=== PATIENT | female | born 1990 | race Caucasian/White ===

== ENCOUNTER 2022-05-17 07:23 | Emergency (ER) | payer OTHER | END 2022-05-17 09:16 | disposition home or self-care (01) | LOC: CSHERS 07:23 | DX: J02.9 Acute pharyngitis, unspecified (principal); Z20.822 Contact with and (suspected) exposure to COVID-19 | CPT/HCPCS: 71045; U0003; U0005 ==

== ENCOUNTER 2022-06-19 07:48 | Emergency (ER) | payer OTHER | END 2022-06-19 08:52 | disposition home or self-care (01) | LOC: CSHERS 07:48 | DX: J11.1 Influenza due to unidentified influenza virus with other respiratory manifestations (principal) | CPT/HCPCS: 87804; 99283 ==

== ENCOUNTER 2022-10-03 15:01 | Emergency (ER) | payer OTHER | END 2022-10-03 16:00 | disposition home or self-care (01) | LOC: CSHERS 15:01 | DX: O99.891 Other specified diseases and conditions complicating pregnancy (principal); R10.30 Lower abdominal pain, unspecified; Z3A.15 15 weeks gestation of pregnancy ==

== ENCOUNTER 2022-10-31 14:22 | Outpatient (CLI) | payer OTHER | END 2022-10-31 14:23 | disposition home or self-care (01) | LOC: CSHULT 14:22 | PROVIDERS: ATTEND Family Medicine | DX: Z34.82 Encounter for supervision of other normal pregnancy, second trimester (principal) | CPT/HCPCS: 76805 ==

== ENCOUNTER 2023-03-07 21:22 | Inpatient (IN) | payer OTHER ==
[~2023-03-07 21:22] MED LIST: Bupivacaine PF 0.5% 30 ML VIAL ONE
[2023-03-07 22:07] VITALS: BMI 27.1
[2023-03-07] MEDS ORDERED: Metoclopramide HCl 10 MG/2 ML VIAL IVP PRN (22:28)
[2023-03-07] MEDS ORDERED: diphenhydrAMINE 50 MG/ML VIAL IVP PRN (22:28)
[2023-03-07] MEDS ORDERED: hydrALAZINE 20 MG/ML VIAL SLOW IVP PRN (22:28)
[2023-03-07] MEDS ORDERED: Acetaminophen 325 MG TAB PO PRN (22:29)
[2023-03-08] MEDS ORDERED: fentaNYL 50 mcg/mL 1 mL Vial SLOW IVP PRN (00:30)
[2023-03-08] MEDS ORDERED: NS w/ Oxytocin 30 units 500 ML IV SCH (03:15)
[2023-03-08] MEDS ORDERED: NS w/ Oxytocin 30 units 500 ML IVPB SCH (03:15)
[2023-03-08] MEDS ORDERED: Ibuprofen 800 MG TAB PO PRN (03:15)
[2023-03-08] MEDS ORDERED: Misoprostol 200 MCG TAB RC PRN (03:15)
[2023-03-08] MEDS ORDERED: Carboprost 250 MCG/ML AMP IM PRN (03:15)
[2023-03-08] MEDS ORDERED: HYDROcodone/Acetaminophen 5/325 mg Tablet PO PRN ×3 (03:15→13:40)
[2023-03-08] MEDS ORDERED: Lidocaine 1% (PF) 30 ML VIAL SC PRN (03:15)
[2023-03-08] MEDS ORDERED: Methylergonovine 0.2 MG/ML VIAL IM PRN (03:15)
[2023-03-08] MEDS ORDERED: Diphenoxylate HCl/Atropine Tablet PO PRN (03:15)
[2023-03-08] MEDS ORDERED: fentaNYL 50 mcg/mL 1 mL Vial ONE (03:19)
[2023-03-08] MEDS ORDERED: Ondansetron PF 4 MG/2 ML Vial IVP PRN ×3 (03:30→13:40)
[2023-03-08] MEDS ORDERED: Acetaminophen 500 MG TAB PO PRN (03:30)
[2023-03-08] MEDS ORDERED: Promethazine HCl 25 MG/ML VIAL IM PRN ×3 (03:30→13:40)
[2023-03-08] MEDS ORDERED: hydrALAZINE 20 MG/ML VIAL SLOW IVP PRN ×2 (03:30→13:40)
[2023-03-08] MEDS ORDERED: Zolpidem Tartrate 5 MG TAB PO PRN (03:30)
[2023-03-08] MEDS ORDERED: Lactated Ringer's 1,000 ML IV SCH (03:30)
[2023-03-08] MEDS: fentaNYL 50 mcg/mL 1 mL Vial SLOW IVP PRN ×2 (03:31→05:50)
[2023-03-08 05:14] LABS: HBSAg Index 0.65 S/CO (0-0.99); Hep B Surf Ag - L&D Non-Reactive S/CO (NonReactive); Syphilis Antibody Nonreactive (Nonreactive); Syphilis Antibody Index 0.02 S/CO (<1.00 Non-Reactive)
[2023-03-08 05:23] LABS: HIV (1/2) Antibody/Antigen Non-Reactive (NonReactive); HIV 1/2 INDEX 0.09 S/CO (<1.00)
[2023-03-08 05:24] LABS: Hemoglobin 10.3 g/dL (12.0-15.5); Mean Corpuscular HGB CONC 32.9 g/dL (32.0-36.0); Mean Corpuscular Volume 94.3 fl (81.6-98.3); Mean Platelet Volume 11.5 fl (7.4-10.4); Platelet Count 119 10x3/uL (150-450); Red Blood Cell (RBC) Count 3.32 10x6/uL (3.90-5.03); White Blood Cell (WBC) Count 11.9 10x3/uL (3.5-10.5)
[2023-03-08] MEDS ORDERED: fentaNYL/Ropivacaine Epidural 100 ML ONE (07:57)
[2023-03-08] MEDS ORDERED: ePHEDrine Sulfate 50 MG/10 ML VIAL SLOW IVP PRN (08:36)
[2023-03-08] MEDS ORDERED: Lactated Ringer's 500 ML IV PRN (08:36)
[2023-03-08] MEDS ORDERED: Naloxone HCl 0.4 mg/ml Vial IVP PRN ×2 (08:36)
[2023-03-08] MEDS ORDERED: Moisturizing Cream (Eucerin) 113 GM JAR TOP PRN (08:36)
[2023-03-08] MEDS ORDERED: Acetaminophen 325 MG TAB PO PRN (08:36)
[2023-03-08] MEDS ORDERED: diphenhydrAMINE 50 MG/ML VIAL IVP PRN (08:36)
[2023-03-08] MEDS ORDERED: fentaNYL 2 mcg/Ropivacaine 0.2% Epidural 100 ML CADD EPIDURAL SCH (08:45)
[2023-03-08] MEDS ORDERED: Communication Order-Pharmacy FS SCH (08:45)
[2023-03-08] MEDS ORDERED: Boostrix 0.5 ML (Tdap) VIAL (>/=7 yrs of age) IM ONE (13:40)
[2023-03-08] MEDS ORDERED: Bisacodyl 10 MG SUPP PR PRN (13:40)
[2023-03-08] MEDS ORDERED: Milk Of Magnesia 30 ML UDCUP PO PRN (13:40)
[2023-03-08] MEDS ORDERED: diphenhydrAMINE 25 MG CAP PO PRN (13:40)
[2023-03-08] MEDS ORDERED: Lanolin Ointment 7 GM TUBE TOP PRN (13:40)
[2023-03-08] MEDS: Ibuprofen 800 MG TAB PO SCH ×2 (19:37→21:36)
[2023-03-08] MEDS: Ferrous Sulfate 325 MG TAB PO SCH (19:37)
[2023-03-08] MEDS: Docusate 100 MG CAP PO SCH (21:36)
[2023-03-09] MEDS: Ibuprofen 800 MG TAB PO SCH (05:41)
[2023-03-09] MEDS: Ferrous Sulfate 325 MG TAB PO SCH (08:08)
[2023-03-09] MEDS: Docusate 100 MG CAP PO SCH (08:38)
[2023-03-09] MEDS ORDERED: Prenatal Vitamin 1 TAB PO SCH (09:00)
[2023-03-09 11:58] VITALS: BP 108/59; TEMP 98
== END 2023-03-09 16:25 | disposition home or self-care (01) | DRG 807 ==
LOC: CSHLD/OP 21:22 → CSHLD 23:08 → CSHPP 03-08 15:50
PROVIDERS: ADMIT Family Medicine; ATTEND Family Medicine
PROC: 10E0XZZ Delivery of Products of Conception, External Approach (ICD-10-PCS; principal; 2023-03-08)
PROC: 10907ZC Drainage of Amniotic Fluid, Therapeutic from Products of Conception, Via Natural or Artificial Opening (ICD-10-PCS; 2023-03-08)
PROC: 10H07YZ Insertion of Other Device into Products of Conception, Via Natural or Artificial Opening (ICD-10-PCS; 2023-03-08)
DX: O69.81X0 Labor and delivery complicated by cord around neck, without compression, not applicable or unspecified (principal); Z37.0 Single live birth; Z3A.37 37 weeks gestation of pregnancy; O69.2XX0 Labor and delivery complicated by other cord entanglement, with compression, not applicable or unspecified
CPT/HCPCS: 36415; 51702; 85027; 86780; 86850; 86900; 86901; 87340; 87389; 99285; J3010; J7120; S0020

== ENCOUNTER 2024-05-11 11:23 | Emergency (ER) | payer SELFPAY | END 2024-05-11 12:15 | disposition home or self-care (01) | LOC: CSHERS 11:23 | DX: B34.9 Viral infection, unspecified (principal) | CPT/HCPCS: 99283 ==

== ENCOUNTER 2024-06-13 11:42 | Emergency (ER) | payer SELFPAY ==
[2024-06-13] MEDS ORDERED: Ondansetron PF 4 MG/2 ML Vial ONE (13:48)
[2024-06-13] MEDS ORDERED: Ketorolac Tromethamine 30 MG (1 mL) VIAL ONE (13:48)
[2024-06-13] MEDS ORDERED: Acetaminophen 500 MG TAB ONE (13:49)
[2024-06-13 14:10] LABS: Pregu Control Background? CLEAR/WHITE (CLR/WHITE); Pregu Control Bar Appear? YES (CONTROL BAR); Specific Gravity 1.025 (1.002-1.036)
[2024-06-13 14:14] LABS: Pregnancy Test - Urine (BHCG) Negative (Negative)
== END 2024-06-13 15:06 | disposition home or self-care (01) ==
LOC: CSHERS 11:42
DX: G43.909 Migraine, unspecified, not intractable, without status migrainosus (principal); R19.7 Diarrhea, unspecified; R11.0 Nausea
CPT/HCPCS: 81025; 96361; 96374; 96375; J1885; J2405

== ENCOUNTER 2024-06-16 11:59 | Emergency (ER) | payer SELFPAY ==
[2024-06-16 14:50] LABS: Bilirubin Neg (Negative); Blood, Urine 50 (Negative); Clarity Slightly Cloudy (Clear); Glucose, Urine (Dipstick) Normal (Negative); Ketone, Urine Negative (Negative); Leukocyte 500 (Negative); Nitrite Negative (Negative); Protein, Urine (Dipstick) Negative (Neg-Trace); Specific Gravity, Urine 1.015 (1.005-1.030); Urobilinogen Normal mg/dL (Less than 2)
[2024-06-16 15:15] LABS: Bacteria/HPF Rare-Few HPF (None Seen); CAUTI Indications for Culture Dysuria,urgency,freq
[2024-06-16 15:17] LABS: Urine Culture Reflex Yes Yes
== END 2024-06-16 15:04 | disposition home or self-care (01) ==
LOC: CSHERS 11:59
DX: N39.0 Urinary tract infection, site not specified (principal)
CPT/HCPCS: 81001; 87086; 87428; 99284